=== PATIENT | male | born 1965 | race Caucasian/White ===

== ENCOUNTER 2017-11-26 13:40 | Emergency (ER) | payer OTHER ==
[~2017-11-26] VITALS: Ht 180.3 cm; Wt 105.5 kg
[~2017-11-26 13:40] MED LIST: MERC50TA17 PO; METR500T PO; WARF2.5T PO; WARF5TAB PO
[2017-11-26] MEDS ORDERED: SODIUM CHLORIDE 0.9% 1,000 ML IV ONE (15:15)
[2017-11-26] MEDS ORDERED: SODIUM CHLORIDE 0.9% 1,000ML IVBOLUS ONE (15:30)
[2017-11-26] MEDS ORDERED: SODIUM CHLORIDE FLUSH 10ML SYR IVF ONE (15:30)
[2017-11-26 15:45] LABS: BASOPHILS # (AUTO) 0.03 x10^3/uL (0-0.1); BASOPHILS % (AUTO) 0 % (0-1); EOSINOPHILS # (AUTO) 0.32 x10^3/uL (0-0.4); EOSINOPHILS % (AUTO) 2 % (1-7); LYMPHOCYTES # (AUTO) 0.76 x10^3/uL (1-3.4); LYMPHOCYTES % (AUTO) 6 % (22-44); MD NO; MEAN CORPUSCULAR HEMOGLOBIN 29.9 pg (27.5-34.5); MEAN CORPUSCULAR HGB CONC 32.8 g/dL (33.2-36.2); MEAN CORPUSCULAR VOLUME 91.4 fL (81-97); MEAN PLATELET VOLUME 7.9 fL (7.4-10.4); MONOCYTES # (AUTO) 1.15 x10^3/uL (0.2-0.8); MONOCYTES % (AUTO) 8 % (2-9); NEUTROPHILS # (AUTO) 11.37 x10^3/uL (1.8-6.8); NEUTROPHILS % (AUTO) 84 % (42-75); PLATELET COUNT 298 x10^3/uL (130-400); RED BLOOD COUNT 5.02 x10^6/uL (4.38-5.82); RED CELL DISTRIBUTION WIDTH 14.8 % (9.4-14.8)
[2017-11-26 15:45] LABS: CULTURE INDICATED? YES; MICROSCOPIC INDICATED
[2017-11-26 15:52] LABS: INTERNATIONAL NORMALIZED RATIO 2.77 (0.93-1.1)
[2017-11-26 15:57] LABS: ALBUMIN 3.4 g/dL (3.4-5.0); ANION GAP 10 mmol/L (5-15); CALCIUM 8.4 mg/dL (8.5-10.1); CHLORIDE 107 mmol/L (98-107)
[2017-11-26 16:01] LABS: ALANINE AMINOTRANSFERASE 36 U/L (12-78); ALKALINE PHOSPHATASE 54 U/L (45-117); BILIRUBIN,TOTAL 0.8 mg/dL (0.2-1.0); CREATININE 1.81 mg/dL (0.7-1.3); TOTAL PROTEIN 7.2 g/dL (6.4-8.2)
[2017-11-26] MEDS ORDERED: OMEP40CA6 PO (16:13)
[2017-11-26] MEDS ORDERED: LISI-167 PO (16:13)
[2017-11-26] MEDS ORDERED: TAMS-11 PO (16:13)
[2017-11-26 18:05] LABS: CLOSTRIDIUM DIFFICILE ANTIGEN POSITIVE; CLOSTRIDIUM DIFFICILE TOXIN POSITIVE (Negative)
[2017-11-26 19:19] VITALS: BP 127/76
== END 2017-11-26 19:22 | disposition home or self-care (01) ==
LOC: ED 16:37
DX: R31.0 Gross hematuria (principal); A04.72 Enterocolitis due to Clostridium difficile, not specified as recurrent; I10 Essential (primary) hypertension; R11.0 Nausea; R19.7 Diarrhea, unspecified
CPT/HCPCS: 36415; 74176; 80053; 81001; 83605; 83690; 85025; 85610; 85730; 87086; 87324; 89055; 96360; 96361; 99285; J7030

== ENCOUNTER → 2018-10-20 | Outpatient (CLI) | payer OTHER ==
[~2018-10-20] MED LIST changes: +LISI-167 PO; +OMEP40CA6 PO; +TAMS-11 PO
== END | disposition home or self-care (01) ==
LOC: CFH 15:55
PROVIDERS: ATTEND Nurse Practitioner Family
DX: I35.8 Other nonrheumatic aortic valve disorders (principal)
CPT/HCPCS: 93306

== ENCOUNTER 2020-06-08 06:07 | Outpatient (CLI) | payer OTHER ==
[~2020-06-08] VITALS: Ht 180.3 cm; Wt 90.0 kg
[~2020-06-08 06:07] MED LIST changes: +OMEP40CA42 PO; -OMEP40CA6 PO; -WARF2.5T PO; +WARF2.5T2 PO; -WARF5TAB PO; +WARF5TAB2 PO
[2020-06-08 07:30] VITALS: BP 100/74
[2020-06-08] MEDS ORDERED: SODIUM CHLORIDE 0.9% 1,000 ML IV SCH (07:30)
[2020-06-08 08:20] LABS: INTERNATIONAL NORMALIZED RATIO 1.06 (0.93-1.1); PROTHROMBIN TIME 11.2 Seconds (9.6-11.5)
== END 2020-06-08 23:59 | disposition home or self-care (01) ==
LOC: OUT 06:07 → EDSTATUS 08:00 → OUT 23:59
PROVIDERS: ATTEND Nurse Practitioner
DX: Z01.818 Encounter for other preprocedural examination (principal); D64.9 Anemia, unspecified; E78.5 Hyperlipidemia, unspecified; R73.01 Impaired fasting glucose; M35.00 Sjogren syndrome, unspecified; K50.90 Crohn's disease, unspecified, without complications; E83.39 Other disorders of phosphorus metabolism; R31.9 Hematuria, unspecified; R80.9 Proteinuria, unspecified; N18.30 Chronic kidney disease, stage 3 unspecified
CPT/HCPCS: 36415; 85610; J7030

== ENCOUNTER 2020-06-09 06:06 | Day surgery (SDC) | payer OTHER ==
[~2020-06-09] VITALS: Ht 180.3 cm; Wt 91.2 kg
[2020-06-09 07:12] VITALS: BP 102/64
[2020-06-09] MEDS ORDERED: NALOXONE 1 MG/ML, 2ML ONE (07:44)
[2020-06-09] MEDS ORDERED: MIDAZOLAM 1 MG/ML, 5ML ONE (07:44)
[2020-06-09] MEDS ORDERED: FENTANYL PF 100 MCG/2ML ONE ×2 (07:44)
[2020-06-09] MEDS ORDERED: FLUMAZENIL 0.1 MG/1 ML, 5ML ONE (07:44)
== END 2020-06-09 09:40 | disposition home or self-care (01) ==
LOC: OUT 06:06
PROVIDERS: ATTEND Nurse Practitioner
DX: I12.9 Hypertensive chronic kidney disease with stage 1 through stage 4 chronic kidney disease, or unspecified chronic kidney disease (principal); N18.4 Chronic kidney disease, stage 4 (severe); N25.81 Secondary hyperparathyroidism of renal origin; J45.909 Unspecified asthma, uncomplicated; Z88.2 Allergy status to sulfonamides; Z88.1 Allergy status to other antibiotic agents; Z91.018 Allergy to other foods; Z79.01 Long term (current) use of anticoagulants; Z79.899 Other long term (current) drug therapy; Z98.890 Other specified postprocedural states
CPT/HCPCS: 50200; 77012; 88300; 99156; 99157; J2250; J2310; J3010

== ENCOUNTER 2020-09-05 10:24 | Emergency (ER) | payer OTHER ==
[~2020-09-05] VITALS: Ht 180.3 cm; Wt 94.9 kg
[2020-09-05 10:28] VITALS: BP 146/93
--- NOTE | 2020-09-05 10:40 | NUR ---
AT BEDSIDE FOR ASSESSMENT
--- NOTE | 2020-09-05 10:40 | NUR ---
PT COMES IN C/O LEFT/RIGHT NARE EPITAXSIS STARTING AT 0500 THIS AM. STATES INTERMITTENT EPITAXIS FOR 4 DAYS. PT STATES HE TAKES WARFARIN FOR A BRAIN CLOT. STATES HE HAS BEEN SEEING AN ENT RECENTLY AND HAS BEEN USING AFRIN. ON ASSESSMENT PT HAS LEFT NASAL PLUG IN PLACE. MD AT BEDSIDE FOR ASSESSMENT AND TREATMENT.
[2020-09-05] MEDS ORDERED: SILVER NITRATE STICK TP ONE (10:50)
== END 2020-09-05 11:26 | disposition home or self-care (01) ==
LOC: ED 11:12
DX: R04.0 Epistaxis (principal); R51.9 Headache, unspecified; I10 Essential (primary) hypertension; Z79.01 Long term (current) use of anticoagulants
CPT/HCPCS: 30901; 99284

== ENCOUNTER 2020-09-12 03:15 | Emergency (ER) | payer OTHER ==
[~2020-09-12] VITALS: Ht 180.3 cm; Wt 97.3 kg
--- NOTE | 2020-09-12 03:40 | NUR ---
CC OF BLOODY NOSE FROM LEFT NARE FOR "A FEW HOURS". PT RECEIVED MOH'S EYE SURGERY LAST SATURDAY AND IS ON WARFARIN FROM BLOOD CLOT IN BRAIN. PT HAS LEFT EYE PATCHED WITH FOLLOW UP ON SATURDAY. PT ALSO HAS TISSUE IN LEFT NARE. LARGE AMOUNT OF KATHY RED BLOOD NOTED. PT STATES HE TESTS HIS INR AT HOME WITH RESULT OF 1.4 TONIGHT BEFORE ARRIVAL. PTS AT BEDSIDE.
[2020-09-12] MEDS ORDERED: NEOSPORIN OINT. PKT 1 PACKET ONE (03:41)
[2020-09-12] MEDS ORDERED: SILVER NITRATE STICK TP ONE (03:48)
--- NOTE | 2020-09-12 04:03 | NUR ---
PACKING DONE TO LEFT NARE AND CATERIZATION DONE TO RIGHT NARE BY DR MANRIQUE. PT TOLERATED WELL. AT BEDSIDE. PENDING BLOOD WORK.
--- NOTE | 2020-09-12 04:11 | NUR ---
LAB AT BEDSIDE
[2020-09-12 04:28] LABS: BASOPHILS % (AUTO) 1 % (0-1); EOSINOPHILS % (AUTO) 3 % (1-7); LYMPHOCYTES % (AUTO) 17 % (22-44); MEAN CORPUSCULAR HEMOGLOBIN 33.6 pg (27.5-34.5); MEAN CORPUSCULAR HGB CONC 34.3 g/dL (33.2-36.2); MEAN PLATELET VOLUME 6.7 fL (7.4-10.4); MONOCYTES % (AUTO) 7 % (2-9); NEUTROPHILS % (AUTO) 73 % (42-75); PLATELET COUNT 438 x10^3/uL (130-400); RED BLOOD COUNT 2.37 x10^6/uL (4.38-5.82); RED CELL DISTRIBUTION WIDTH 17.4 % (9.4-14.8)
[2020-09-12 04:40] LABS: INTERNATIONAL NORMALIZED RATIO 1.41 (0.93-1.1); PROTHROMBIN TIME 14.9 Seconds (9.6-11.5)
[2020-09-12] MEDS ORDERED: ONDANSETRON ODT 8 MG ONE (05:22)
[2020-09-12] MEDS ORDERED: ONDANSETRON ODT 8 MG PO ONE (05:30)
[2020-09-12 05:49] LABS: ANISOCYTOSIS 1+; MD MORPH REVIEW ONLY; OVALOCYTES 1+; POLYCHROMASIA 1+
[2020-09-12 05:50] LABS: <PLATELET ESTIMATE> INCREASED; SMALL PLATELETS 1+
[2020-09-12 06:00] VITALS: BP 151/94
== END 2020-09-12 06:02 | disposition home or self-care (01) ==
LOC: ED 03:41
DX: R04.0 Epistaxis (principal); D50.0 Iron deficiency anemia secondary to blood loss (chronic); I12.9 Hypertensive chronic kidney disease with stage 1 through stage 4 chronic kidney disease, or unspecified chronic kidney disease; N18.9 Chronic kidney disease, unspecified; Z86.718 Personal history of other venous thrombosis and embolism; Z90.89 Acquired absence of other organs; Z88.2 Allergy status to sulfonamides; Z79.01 Long term (current) use of anticoagulants
CPT/HCPCS: 30901; 36415; 85025; 85610; 85730; 99284; Q0162

== ENCOUNTER → 2020-11-30 | Outpatient (CLI) | payer OTHER ==
[~2020-11-30] MED LIST changes: +AMLO-150 PO; +ASCO100018 PO; +ATOR10TA9 PO; +CHOL10003 PO; +CYAN-27 PO; +DIPH25CA61 PO; +FAMO-79 PO; +FINA5TAB4 PO; +FLUT1BLS INH; +FURO-92 PO; +GUAI-103 PO; +Iron PO; +METO-93 PO; +MONT10TA6 PO; +PRED10TA14 PO; +PYRI100T9 PO; +SODI126M NS; +UMEC62.5 INH; +USTE90DI INJ; +WARF-36 PO; +[UNRECOGNIZED DRUG - CODE] NS
[2020-11-30 12:29] LABS: BASOPHILS % (AUTO) 1 % (0-1); EOSINOPHILS % (AUTO) 7 % (1-7); INTERNATIONAL NORMALIZED RATIO 1.96 (0.93-1.1); LYMPHOCYTES % (AUTO) 13 % (22-44); MD NO; MEAN CORPUSCULAR HGB CONC 33.9 g/dL (33.2-36.2); MEAN PLATELET VOLUME 6.9 fL (7.4-10.4); MONOCYTES % (AUTO) 7 % (2-9); NEUTROPHILS % (AUTO) 71 % (42-75); PLATELET COUNT 471 x10^3/uL (130-400); PROTHROMBIN TIME 20.7 Seconds (9.6-11.5); RED BLOOD COUNT 3.55 x10^6/uL (4.38-5.82); RED CELL DISTRIBUTION WIDTH 17.9 % (9.4-14.8)
[2020-11-30 12:31] LABS: ALANINE AMINOTRANSFERASE 25 U/L (12-78); ALBUMIN 3.6 g/dL (3.4-5.0); ANION GAP 8 mmol/L (5-15); CALCIUM 9.3 mg/dL (8.5-10.1); CHLORIDE 112 mmol/L (98-107); CREATININE 3.55 mg/dL (0.7-1.3)
[2020-11-30 12:34] LABS: ALKALINE PHOSPHATASE 51 U/L (45-117); BILIRUBIN,TOTAL 0.4 mg/dL (0.2-1.0); TOTAL PROTEIN 7.3 g/dL (6.4-8.2)
[2020-11-30 13:51] LABS: MICROSCOPIC INDICATED
== END | disposition home or self-care (01) ==
LOC: STAR 11:08
PROVIDERS: ATTEND Urology
DX: Z01.812 Encounter for preprocedural laboratory examination (principal); N40.1 Benign prostatic hyperplasia with lower urinary tract symptoms; Z20.822 Contact with and (suspected) exposure to COVID-19
CPT/HCPCS: 36415; 80053; 81001; 85025; 85610; 87086; U0003

== ENCOUNTER 2020-12-06 11:07 | Inpatient (IN) | payer OTHER ==
[~2020-12-06] VITALS: Ht 180.3 cm; Wt 92.9 kg
[~2020-12-06 11:07] MED LIST changes: +HYDROCORTISONE 100 MG INJ. ONE
[2020-12-06] MEDS ORDERED: ENOX100S5 SQ (11:56)
[2020-12-06] MEDS ORDERED: LACTATED RINGERS 1,000 ML IV SCH (12:00)
[2020-12-06] MEDS ORDERED: CHLORHEXIDINE 15 ML UDC PO ONE (12:00)
[2020-12-06] MEDS ORDERED: SODIUM CHLORIDE 0.9% 1,000 ML IV SCH (12:00)
[2020-12-06] MEDS ORDERED: CHLORHEXIDINE 15 ML UDC ONE (12:01)
[2020-12-06 12:41] LABS: INTERNATIONAL NORMALIZED RATIO 1.19 (0.93-1.1); PROTHROMBIN TIME 12.7 Seconds (9.6-11.5)
[2020-12-06] MEDS ORDERED: MIDAZOLAM 1 MG/ML, 2ML ONE (14:57)
[2020-12-06] MEDS ORDERED: FENTANYL PF 250 MCG/5ML ONE (14:57)
[2020-12-06] MEDS ORDERED: PROPOFOL 10 MG/ML, 20ML ONE (15:12)
[2020-12-06] MEDS ORDERED: ONDANSETRON 2MG/ML, 2ML ONE (15:12)
[2020-12-06] MEDS ORDERED: PHENYLEPHRINE 10 MG/ML ONE (15:12)
[2020-12-06] MEDS ORDERED: CEFAZOLIN 1,000 MG ONE (15:12)
[2020-12-06] MEDS ORDERED: EPHEDRINE 50 MG/ML, 1ML IVPush PRN (15:30)
[2020-12-06] MEDS ORDERED: ALBUTEROL SULFATE 2.5 MG/3 ML NPPB PRN (15:30)
[2020-12-06] MEDS ORDERED: METOPROLOL 1 MG/ML, 5ML IV PRN (15:30)
[2020-12-06] MEDS ORDERED: PROMETHAZINE 25 MG/ML, 1ML IVPush PRN (15:30)
[2020-12-06] MEDS ORDERED: ALBUTEROL/IPRATROPIUM 2.5MG/0.5MG, 3 ML NPPB PRN (15:30)
[2020-12-06] MEDS ORDERED: HALOPERIDOL 5 MG/ML IV PRN (15:30)
[2020-12-06] MEDS ORDERED: LABETALOL 5MG/ML, 20ML IV PRN (15:30)
[2020-12-06] MEDS ORDERED: HYDROmorphone 1 MG/ML, 1ML INJ IVPush PRN (15:30)
[2020-12-06] MEDS ORDERED: ACETAMINOPHEN 325 MG TABLET PO PRN (15:30)
[2020-12-06] MEDS ORDERED: ONDANSETRON 2MG/ML, 2ML IVPush PRN ×2 (15:30→19:30)
[2020-12-06] MEDS ORDERED: DIPHENHYDRAMINE 50 MG/ML, 1ML IVPush PRN (15:30)
[2020-12-06] MEDS ORDERED: METOCLOPRAMIDE 5 MG/ML, 2ML IVPush PRN (15:30)
[2020-12-06] MEDS ORDERED: hydrALAzine 20 MG/ML, 1ML IV PRN (15:30)
[2020-12-06] MEDS ORDERED: FENTANYL PF 100 MCG/2ML IV PRN (15:30)
[2020-12-06] MEDS ORDERED: OXYcodone 5 MG/5 ML ORAL.SOL UDC PO PRN (15:30)
[2020-12-06] MEDS ORDERED: OPIUM/BELLADONNA SUPP.RECT 16.2-60 MG ONE (15:45)
[2020-12-06 18:08] LABS: ANION GAP 5 mmol/L (5-15); CALCIUM 8.2 mg/dL (8.5-10.1); CHLORIDE 118 mmol/L (98-107); CREATININE 3.65 mg/dL (0.7-1.3)
[2020-12-06] MEDS ORDERED: OXYcodone/APAP 5/325MG TABLET PO PRN (19:30)
[2020-12-06] MEDS ORDERED: OPIUM/BELLADONNA SUPP.RECT 16.2-30 MG PR PRN (19:30)
[2020-12-06] MEDS ORDERED: ATORVASTATIN 10 MG TABLET PO SCH (21:00)
[2020-12-06] MEDS: D5%-0.45% NACL 1,000 ML IV SCH (21:30)
[2020-12-06] MEDS: AMLODIPINE 5 MG TABLET PO SCH (21:31)
[2020-12-06] MEDS ORDERED: [UNRECOGNIZED DRUG - REMARK] MC SCH (22:00)
[2020-12-06 23:45] VITALS: BP 125/79
[2020-12-07 03:28] VITALS: BP 118/75
[2020-12-07] MEDS: D5%-0.45% NACL 1,000 ML IV SCH ×2 (04:53→10:10)
[2020-12-07 05:54] LABS: ANION GAP 8 mmol/L (5-15); CALCIUM 8.3 mg/dL (8.5-10.1); CHLORIDE 118 mmol/L (98-107)
[2020-12-07] MEDS ORDERED: METOPROLOL SUCCINATE 50 MG TAB.ER.24H PO SCH (06:00)
[2020-12-07 07:20] VITALS: BP 118/73
[2020-12-07] MEDS ORDERED: PSEUDOEPHEDRINE PO SCH (09:00)
[2020-12-07] MEDS ORDERED: GUAIFENESIN PO SCH (09:00)
[2020-12-07] MEDS ORDERED: [UNRECOGNIZED DRUG - OTHER] INH SCH (09:00)
[2020-12-07] MEDS ORDERED: MERCAPTOPURINE 50 MG TABLET PO SCH (09:00)
[2020-12-07] MEDS ORDERED: UMECLIDINIUM INH SCH (09:00)
[2020-12-07] MEDS ORDERED: FUROSEMIDE 40 MG TABLET PO SCH (09:00)
[2020-12-07] MEDS ORDERED: MONTELUKAST 10 MG TABLET PO SCH (09:00)
[2020-12-07] MEDS ORDERED: FLUTICASONE/VILANTEROL 200-25MCG/INH INH SCH (09:00)
[2020-12-07] MEDS ORDERED: DIPHENHYDRAMINE 25 MG CAPSULE PO SCH (09:00)
[2020-12-07] MEDS ORDERED: [UNRECOGNIZED DRUG - OTHER] NAS SCH (09:00)
[2020-12-07] MEDS ORDERED: ENOXAPARIN 100 MG/ML SQ SCH (10:00)
[2020-12-07] MEDS: AMLODIPINE 5 MG TABLET PO SCH (10:07)
== END 2020-12-07 11:35 | disposition home or self-care (01) | DRG 713 ==
LOC: OUT 11:07 → 4NE 19:00 → OUT 23:14 → 4NE 23:14 → DCLOUNGE 12-07 11:30
PROVIDERS: ADMIT Urology; ATTEND Urology
PROC: 0V507ZZ Destruction of Prostate, Via Natural or Artificial Opening (ICD-10-PCS; principal; 2020-12-06 12:00)
DX: N40.1 Benign prostatic hyperplasia with lower urinary tract symptoms (principal); A00.1 Cholera due to Vibrio cholerae 01, biovar eltor; N13.8 Other obstructive and reflux uropathy; Z01.812 Encounter for preprocedural laboratory examination
CPT/HCPCS: 36415; 80048; 85014; 85018; 85610; 85730; G0378; J0690; J1650; J2250; J2405; J2704; J3010; J1720; J2370; J7030